=== PATIENT | male | born 1960 | race Caucasian/White ===

== ENCOUNTER 2016-06-02 21:52 | Emergency (ER) | payer MEDICAID, OTHER ==
[~2016-06-02] VITALS: Ht 167.6 cm; Wt 96.5 kg
[2016-06-02 22:12] VITALS: Ht 167.6 cm; Wt 96.5 kg
[2016-06-02] MEDS ORDERED: KETOROLAC 30 MG INJ IV STA (23:58)
[2016-06-02] MEDS ORDERED: DIPHENHYDRAMINE 50 MG INJ IV STA (23:58)
[2016-06-02] MEDS ORDERED: METOCLOPRAMIDE 10 MG INJ IV STA (23:58)
[2016-06-02] MEDS ORDERED: SOD CHLORIDE 0.9% 1,000 ML IV STA (23:58)
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
--- NOTE | 2016-06-03 01:12 | RADRPT ---
PROCEDURE: CT Head without contrast. CLINICAL INDICATION: Patient experiencing a headache. TECHNIQUE: Continuous axial CT images were obtained from the base of skull to the vertex. No cont rast was administered. The calculated radiation dose measures 720 mGy centimeters. The CTDI measures 44 mGy COMPARISON: None available FINDINGS: The ventricles are symmetric and normal in size. There is no mass effect or midline shift. There i s no abnormal intra-axial or extra-axial fluid collection. There is no evidence of intracranial hem orrhage. There are no abnormal areas of increased or decreased attenuation in the brain parenchyma. There is mild intracranial vascular calcification. The bony calvarium is intact. The orbital soft tissue contents are unremarkable. Paranasal sinuses appear clear IMPRESSION: No mass effect or acute intracranial bleed. Mild intracranial vascular calcification.. RPTAT: HBST .Luis Armando Agosto MD, MD Date Time Electronically viewed and signed by .Luis Armando Agosto MD, on 06/03/2016 01:12 .T/
[2016-06-03 01:14] LABS: ADD SCAN DIFF NO
[2016-06-03 01:31] LABS: INR 0.89; PT RATIO 0.9
[2016-06-03 01:32] LABS: PARTIAL THROMBOPLASTIN TIME 31.5 Sec (25.0-35.0); POTASSIUM 4.2 mmol/L (3.5-5.1)
[2016-06-03 01:34] LABS: CREATININE 0.62 mg/dl (0.61-1.24)
[2016-06-03 01:35] LABS: CALCIUM 9.5 mg/dl (8.4-10.2)
[2016-06-03 01:37] LABS: BASOPHILS % 0.5 % (0.0-2.0); EOSINOPHILS # 0.1 10^3/ul (0.0-0.5); EOSINOPHILS % 0.7 % (0.0-7.0); HEMATOCRIT 44.2 % (42.0-52.0); HEMOGLOBIN 15.5 g/dl (14.0-18.0); LYMPHOCYTES % 39.7 % (15.0-51.0); MEAN CORPUSCULAR HEMOGLOBIN 30.1 pg (29.0-33.0); MEAN CORPUSCULAR HGB CONC 35.1 g/dl (32.0-37.0); MEAN CORPUSCULAR VOLUME 85.8 fl (82.0-101.0); MEAN PLATELET VOLUME 10.5 fl (7.4-10.4); MONOCYTE # 0.7 10^3/ul (0.3-0.9); MONOCYTES % 9.2 % (0.0-11.0); NEUTROPHIL # 3.8 10^3/ul (1.6-7.5); NEUTROPHILS % 49.8 % (39.0-77.0); PLATELET COUNT 190 10^3/UL (140-415); RED BLOOD COUNT 5.15 10^6/ul (4.70-6.10); RED CELL DISTRIBUTION WIDTH 12.9 % (11.5-14.5); WHITE BLOOD COUNT 7.6 10^3/ul (4.8-10.8)
[2016-06-03] MEDS ORDERED: HYDR-906 PO (01:39)
[2016-06-03] MEDS ORDERED: IBUP-1542 PO (01:39)
[2016-06-03 02:00] VITALS: BP 132/71; PULSE 80; RESP 16; TEMP 98.4
== END 2016-06-03 02:02 | disposition home or self-care (01) ==
LOC: FTE 21:52
DX: R51 Headache (principal); E11.9 Type 2 diabetes mellitus without complications
CPT/HCPCS: 70450; 80048; 85025; 85610; 85730; J1200; J1885; J2765; J7030; 36415; 96361; 96374; 96375